=== PATIENT | female | born 1980 | race Caucasian/White ===

== ENCOUNTER 2020-01-14 03:45 | Inpatient (IN) | payer OTHER, SELFPAY ==
[2019-12-16 15:40] VITALS: BMI 35.5
[2020-01-14] VITALS (236 sets, daily range): BP systolic 84–193; BP diastolic 39–162; PULSE 76–275; TEMP 36.6–38.9; O2SAT 94–100; BMI 36.2
--- NOTE | 2020-01-14 04:17 | LDADM ---
This patient, SPOHIA BOO, was admitted to Labor/Delivery/Recovery 106 on 01/14/20 at 03:45. Plans for labor, pain management and were discussed with patient. Patient/family oriented to hospital policies and general routines including ID bracelet, bed and alarms, visiting hours, pain management, procedures, bathroom and other care routines, personal items, smoking policy, room service/diet and guest tray routines, infant security routines, and visiting hours. Patient/Family are encouraged to report perceived risks to care and to ask questions if they do not understand what they are told or what they should do. See OBIX for further documentation.
[2020-01-14 04:27] LABS: Basophils Percent Auto 0.3 % (0.2-1.2); Eosinophils Absolute Auto 0.1 K/mm3 (0-0.3); Eosinophils Percent Auto 0.7 % (0-4.4); Hematocrit 33.1 % (37.0-47.0); Immature Granulocyte Absolute 0.15 K/mm3 (0.00-0.031); Immature Granulocyte Percent A 1.1 % (0-0.5); Lymphocytes Absolute Auto 2.18 K/mm3 (0.9-3.2); Lymphocytes Percent Auto 16.6 % (18.3-44.2); Mean Corpuscular HGB Conc 33.2 g/dl (32-36); Mean Corpuscular Hemoglobin 29.3 pg (26-34); Mean Platelet Volume 9.3 fl (7.4-10.4); Monocytes Absolute Auto 0.9 K/mm3 (0.1-0.6); Monocytes Percent Auto 6.6 % (2.6-8.5); Neutrophils Absolute Auto 9.8 K/mm3 (1.3-6.7); Neutrophils Percent Auto 74.7 % (45.5-73.1); Platelet Count Result 391 k/mm3 (150-375); Red Blood Count 3.76 M/mm3 (4.2-5.4); Red Cell Distribution Width 12.7 % (11.5-14.5); White Blood Count 13.2 K/mm3 (4.5-10.0)
--- NOTE | 2020-01-14 08:30 | WPDOBADMIT ---
Obstetrics - Admit Note Admission Note: record reviewed. Additions to the history and/or subsequent changes in the physical findings follow. 39 y/o G1 at 40 1/7 weeks here with a gush of fluid at 0350. Irregular contractions. GBS neg. AVSS NST reactive TOCO: Contractions irregularly ABD soft, nontender, gravid, vertex EXT nontender Cervix 2-3/50/-2. Gross ROM. Vertex. IUPC placed. A: IUP at term, with SROM.. P: Oxytocin as needed for augmentation. Anticipate .
[2020-01-14] MEDS: LACTATED RINGERS 1,000 ML 125 ML IV CONT ×5 (08:51→21:23)
[2020-01-14] MEDS: OXYTOCIN 30 UNITS/NS 500 ML 30 UNITS/500 ML BAG 6 UNITS IV CONT (08:52)
[2020-01-14 09:03] LABS: Rapid Plasma Reagin Non-Reactive (NonReactive)
--- NOTE | 2020-01-14 13:17 | WPDANESEPP ---
Anes - Eval Pre Procedure Procedure: labor epidural Date/Time: 01/14/20 13:17 Surgeon: chayo Pre Op Diagnosis: Leaking Patient Data Age: 39 Gender: F Height: 1.7 m Weight: 105 kg Last Vital Signs Temp 36.6 C 01/14/20 11:00 Pulse 92 01/14/20 13:16 BP 135/83 01/14/20 13:16 Pulse Ox 100 01/14/20 13:17 Allergies Allergy/AdvReac Type Severity Reaction Status Date / Time No Known Allergies Allergy Verified 01/07/20 14:43 Home Medications Medication Instructions Recorded Confirmed Type Vitamin 3 tab-cap PO DAILY 12/16/19 12/16/19 History Laboratory Tests 01/14/20 01/14/20 01/14/20 04:19 04:19 04:19 WBC 13.2 K/mm3 H K/mm3 (4.5-10.0) RBC 3.76 M/mm3 L M/mm3 (4.2-5.4) Hgb 11.0 g/dL L g/dL (12.0-15.0) Hct 33.1 % L % (37.0-47.0) MCV 88.0 fl fl (80-100) MCH 29.3 pg pg (26-34) MCHC 33.2 g/dl g/dl (32-36) RDW 12.7 % % (11.5-14.5) Plt Count 391 k/mm3 H k/mm3 (150-375) MPV 9.3 fl fl (7.4-10.4) Immature Gran % (Auto) 1.1 % H % (0-0.5) Neut % (Auto) 74.7 % H % (45.5-73.1) Lymph % (Auto) 16.6 % L % (18.3-44.2) [place] % (Auto) 6.6 % % (2.6-8.5) Eos % (Auto) 0.7 % % (0-4.4) Baso % (Auto) 0.3 % % (0.2-1.2) Lymph # (Auto) 2.18 K/mm3 K/mm3 (0.9-3.2) [place] # (Auto) 0.9 K/mm3 H K/mm3 (0.1-0.6) Eos # (Auto) 0.1 K/mm3 K/mm3 (0-0.3) Baso # (Auto) 0.0 K/mm3 K/mm3 (0.0-0.1) Abs Immat Gran (auto) 0.15 K/mm3 H K/mm3 (0.00-0.031) Absolute Neuts (auto) 9.8 K/mm3 H K/mm3 (1.3-6.7) Absolute Nucleated RBC 0.0 K/mm3 K/mm3 (0.0-0.012) Nucleated RBC % 0.0 % % (0.0-0.2) RPR Non-reactive (NonReactive) Blood Type A Positive Antibody Screen Negative Patient hx anesthesia problems: none Family hx anesthesia problems: none [facility] Family History Family History (System 01/07/20 @ 14:43 by Giselle Zamarripa) Grandparent Congestive heart failure Colon cancer Cerebrovascular accident History of blood clots Social History Social History (System 01/07/20 @ 14:43 by Giselle Zamarripa) Smoking status: Former smoker Smoking end date: 01/14/20 Exam Day of Procedure 01/14/20 13:17
--- NOTE | 2020-01-14 18:56 | PM.OBPNLAB ---
Pain Control Date/time seen: 01/14/20 18:56 Comments: Comfortable with epidural. Pelvic Exam Dilation (cm): 7 Effacement (%): 90 station: -1 Assessment and Plan Comments: AVSS NST reactive TOCO: contractions every 2-3 min. A: IUP at term with SROM, slow progress in labor. P: Continue labor augmentation with oxytocin. Watch closely.
[2020-01-14] MEDS: SODIUM CHLORIDE 0.9% IV 300 ML 600 ML I-UTERINE (19:13)
[2020-01-14] MEDS: AMPICILLIN 2 GM/NS 100 ML 2 GM/100 ML BAG IVPB (20:26)
--- NOTE | 2020-01-14 23:45 | P.PNOB_ITS ---
Pain Control Date/time seen: 01/14/20 23:45 Comments: Had temp 101F, treated with Tylenol. Still comfortable with epidural. Meconium-stained fluid now noted. Pelvic Exam Dilation (cm): 9 Effacement (%): 90 station: 0 Assessment and Plan Comments: AVSS (Tc100) NST occasional variable, 180 bpm TOCO: contractions every 3-5 min Cervix 9/90/0. Tried pushing, but cervix not reducible. A: Arrest of dilation in labor, now with maternal fever and meconium-stained fluid. P: Offered primary . Reviewed risks, benefits, alternatives in detail. She understands risks of surgery to include risks of anesthesia, risks of pain, infection, bleeding, blood products, thromboembolic phenomena and damage to adj acent structures such as bowel, bladder, ureters, blood vessels and nerves. She understands all these risks and elects to proceed with surgery.
--- NOTE | 2020-01-14 23:51 | PM.IMHP ---
H&P: HPI History of Present Illness Chief complaint: Leaking Narrative: 39 y/o G1 at 40 1/7 weeks here after a gush of fluid. SROM diagnosed. Have augmented labor with oxytocin. Comfortable with epidural. Over the last 5-6 hours, and with adequate contractions, the cervix has changed from 7 to 9 cm with minimal descent. Now with elevated temp and meconium-stained fluid. Review of Systems Review of Systems: All systems reviewed & are unremarkable except as noted in HPI and below PMFSH Family History Family History Grandparent Congestive heart failure Colon cancer Cerebrovascular accident History of blood clots Social History Social History Smoking status: Former smoker Smoking end date: 01/14/20 Comments Past OB: None Past [employer]: menarche at 14 with monthly menses lasting 4-5 days. No history of STI or abnormal Pap. Meds Home Medications and Allergies Home Medications Medication Instructions Recorded Confirmed Type Vitamin 3 tab-cap PO DAILY 12/16/19 12/16/19 History Allergies Allergy/AdvReac Type Severity Reaction Status Date / Time No Known Allergies Allergy Verified 01/07/20 14:43 Vital Signs Vital Signs - 24 hr 01/14/20 04:46 01/14/20 04:47 01/14/20 04:52 Temperature 36.8 C Pulse Rate 93 96 Blood Pressure 137/96 H 140/93 H Pulse Oximetry 01/14/20 07:00 01/14/20 08:00 01/14/20 08:20 Temperature 36.8 C Pulse Rate 89 105 H Blood Pressure 131/83 133/85 Pulse Oximetry 01/14/20 08:40 01/14/20 09:00 01/14/20 09:20 Temperature Pulse Rate 96 104 H 96 Blood Pressure 134/89 119/80 123/79 Pulse Oximetry 01/14/20 09:40 01/14/20 10:00 01/14/20 10:09 Temperature Pulse Rate 93 101 H Blood Pressure 138/84 148/103 H Pulse Oximetry 99 01/14/20 10:13 01/14/20 10:18 01/14/20 10:20 Temperature Pulse Rate 100 Blood Pressure 134/88 Pulse Oximetry 100 100 01/14/20 10:23 01/14/20 10:28 01/14/20 10:33 Temperature Pulse Rate Blood Pressure Pulse Oximetry 100 100 99 01/14/20 10:38 01/14/20 10:40 01/14/20 10:41 Temperature Pulse Rate 93 Blood Pressure 144/77 H Pulse Oximetry 100 98 01/14/20 10:42 01/14/20 10:47 01/14/20 10:52 Temperature Pulse Rate Blood Pressure Pulse Oximetry 99 100 99 01/14/20 10:57 01/14/20 11:00 01/14/20 11:02 Temperature 36.6 C Pulse Rate 103 H Blood Pressure 145/96 H Pulse Oximetry 99 100 01/14/20 11:07 01/14/20 11:18 01/14/20 11:20 Temperature Pulse Rate 110 H Blood Pressure 134/69 Pulse Oximetry 99 98 01/14/20 11:25 01/14/20 11:30 01/14/20 11:35 Temperature 36.8 C Pulse Rate Blood Pressure Pulse Oximetry 99 99 99 01/14/20 11:40 01/14/20 11:45 01/14/20 11:50 Temperature Pulse Rate 100 Blood Pressure 137/90 Pulse Oximetry 99 100 99 01/14/20 11:55 01/14/20 11:58 01/14/20 12:00 Temperature Pulse Rate 95 Blood Pressure 145/93 H Pulse Oximetry 98 99 01/14/20 12:03 01/14/20 12:14 01/14/20 12:19 Temperature Pulse Rate Blood Pressure Pulse Oximetry 100 99 98 01/14/20 12:20 01/14/20 12:24 01/14/20 12:29 Temperature Pulse Rate 99 Blood Pressure 156/104 H Pulse Oximetry 99 99 01/14/20 12:34 01/14/20 12:39 01/14/20 12:40 Temperature Pulse Rate 102 H Blood Pressure 138/89 Pulse Oximetry 99 99 01/14/20 12:44 01/14/20 12:45 01/14/20 12:46 Temperature Pulse Rate Blood Pressure Pulse Oximetry 100 94 98 01/14/20 12:51 01/14/20 12:57 01/14/20 12:58 Temperature Pulse Rate 104 H Blood Pressure 147/99 H Pulse Oximetry 99 98 01/14/20 13:00 01/14/20 13:02 01/14/20 13:04 Temperature Pulse Rate 99 91 Blood Pressure 144/89 H 135/82 Pulse Oximetry 100 01/14/20 13:06 01/14/20 13:07 01/14/20 13:08 Temperature
[2020-01-15] VITALS (69 sets, daily range): BP systolic 64–112; BP diastolic 37–72; PULSE 92–133; RESP 16–23; TEMP 36.4–38.1; O2SAT 73–100
--- NOTE | 2020-01-15 00:54 | PM.OBPRVD ---
OB - Delivery Note Procedure Delivery date: 01/15/20 Procedure: Procedures Operation Date: 01/14/20 23:30 <No data on this case meets the specified criteria> Operation Date: 01/15/20 23:55 <No data on this case meets the specified criteria> Primary LTCS Delivery augmentation: pitocin Delivery monitor: external FHT, external uterine and internal uterine Route of delivery: (Primary LTCS) Specimen: Yes (Cord blood, placenta) Estimated blood loss (mL): 920 Anesthesia type: Epidural Disposition: PACU Complications: None Narrative: The patient was taken to the operating room where she was prepared and draped in the usual sterile fashion in dorsal supine position with a leftward tilt. She received cefazolin preoperatively. Epidural anesthesia was found to be adequate. A Pfannenstiel skin incision was made and carried through to the underlying layer of the fascia. The fascia was incised in the midline and the incision was extended laterally. The fascia was dissected free of the underlying rectus muscles. The rectus muscles were in the midline. The peritoneum was identified, tented up and entered sharply. The peritoneal incision was extended superiorly and inferiorly with good visualization of the bladder. The bladder blade was placed. The vesicouterine peritoneum was identified, tented up and entered sharply. The incision was extended laterally and the bladder flap was developed. The bladder blade was replaced. The uterus was then incised sharply in a transverse fashion along the lower uterine segment. The incision was extended laterally. The 's head was delivered atraumatically to the sterile field, followed by the body. The nose and mouth were bulb suctioned. The infant was handed off the field. Cord blood was collected. The placenta was removed manually and was passed off the field. The uterus was exteriorized and cleared of all clots and debris. The uterine incision was reapproximated using 0 Monocryl in a running, locked fashion. A second, imbricating layer of the same suture was placed. Excellent hemostasis resulted as did excellent reapproximation of the normal anatomy. The uterus was returned the abdomen. The pelvis was irrigated copiously with warmed normal saline. Rigorous hemostasis was assured. The fascial layer was reapproximated using 0 Vicryl in a running fashion. The skin was closed with a running, subcuticular stitch of 4 0 Vicryl. Dermaflex was applied externally. Sponge, lap, needle and instrument counts were correct. The patient was taken to the recovery room in stable condition. The infant went to the nursery in stable condition. I was present and scrubbed the entire procedure. Baby Date of : 01/15/20 Time of : 00:13 Weeks of gestation at delivery: 40 gender: Male Weight (pounds): 10 Weight (ounces): 6 presentation: vertex Placenta delivery description: Manual Removal and Normal Configuration cord vessel description: 3 Vessels score one minute: 8 score five minutes: 9
--- NOTE | 2020-01-15 00:56 | PM.OBDSVD ---
DS: Diagnosis Admitting Diagnosis Admitting Diagnosis: SROM OB - DS: Summary OB Procedures : None OB Procedures Intrapartum: OB Procedures: : None Peripartum Data Procedures: Procedures Operation Date: 01/14/20 23:30 <No data on this case meets the specified criteria> Operation Date: 01/15/20 23:55 <No data on this case meets the specified criteria> Time Spent with Patient Time attestation: Total time spent providing and/or coordinating discharge services: DS: Data Data Completed and Pending Labs on day of discharge: Labs from last 24 hours 01/14/20 01/14/20 01/14/20 04:19 04:19 04:19 WBC 13.2 H RBC 3.76 L Hgb 11.0 L Hct 33.1 L MCV 88.0 MCH 29.3 MCHC 33.2 RDW 12.7 Plt Count 391 H MPV 9.3 Immature Gran % (Auto) 1.1 H Neut % (Auto) 74.7 H Lymph % (Auto) 16.6 L [place] % (Auto) 6.6 Eos % (Auto) 0.7 Baso % (Auto) 0.3 Lymph # (Auto) 2.18 [place] # (Auto) 0.9 H Eos # (Auto) 0.1 Baso # (Auto) 0.0 Abs Immat Gran (auto) 0.15 H Absolute Neuts (auto) 9.8 H Absolute Nucleated RBC 0.0 Nucleated RBC % 0.0 RPR Non-reactive Blood Type A Positive Antibody Screen Negative Discharge Plan Discharge Attending physician on discharge: Moses Benson Discharging Clinician: Moses Benson Patient Disposition: Home, Self-Care Activity: may shower, may drive after 2 weeks and pelvic rest Diet: regular Wound Care Instructions: incision open to air Discharge Instructions: Call or return if temperature above 100.4? F, increased abdominal pain, increased vaginal bleeding or any new problems. Stand Alone Forms: General Discharge Information Follow-up/Referrals: Moses Benson MD [Primary Care Provider] - (4 weeks) Discharge Medications: New hydrocodone-acetaminophen [[place]] 5-325 mg tablet 1 - 2 tablet PO Q6H PRN (Reason: pain) Qty: 30 RF: 0 ibuprofen 600 mg tablet 600 mg PO Q6H PRN (Reason: cramps) Qty: 30 RF: 0 ferrous sulfate 325 mg (65 mg iron) tablet,delayed release (DR/EC) 325 mg PO DAILY Qty: 30 RF: 0 No Action Vitamin 3 tab-cap PO DAILY RF: 0 Date of admission: 01/14/20 03:45 Primary Care Provider: Moses Benson Admitting Provider: Moses Benson Attending physician on admission: Moses Benson
[2020-01-15] MEDS: OXYTOCIN 30 UNITS/NS 500 ML 30 UNITS/500 ML BAG 125 UNITS IV CONT (00:59)
[2020-01-15] MEDS: LACTATED RINGERS 1,000 ML 125 ML IV CONT (00:59)
[2020-01-15] MEDS: KETOROLAC 30 MG/ML VIAL (*BKC) IV PUSH ×2 (02:15→08:05)
--- NOTE | 2020-01-15 03:23 | OBPPTRN ---
Patient transferred to post room #292 via stretcher. Support person present. Oriented to unit, room, information board, rooming in, admission packet and security measures. Patient verbalizes understanding. Infant in level 2 nursery
[2020-01-15] MEDS: DEXTROSE 5%/0.45% SOD CHL 1,000 ML 125 ML IV CONT (05:05)
--- NOTE | 2020-01-15 07:18 | P.PNOB_ITS ---
OB - PN: Subj Subjective Date/time seen: 01/15/20 07:18 Interval history: Patient doing well this AM. she has note yet ambulated our of bed. She has not yet attempted PO. She reports adequate pain control. Her bleeding is normal and she reports normal lochia. She denies fever, chills, N/V. She has not yet passed flatus. Patient comments: no complaints and pain well controlled; no flatus present OB - PN: Obj Data Labs CBC & Chem 7: 01/14/20 04:19 Labs: Laboratory Results - last 24 hr 01/14/20 04:19 RPR Non-reactive OB - PN A/P Plan day: 1 Plan: routine care Comments: patient doing well this AM will plan to D/C donis once ambulating advance diet as tolerated H/H stable continue routine PP care plan for circumcision tomorrow Time Spent With Patient Time: Total time spent is greater than 50% in coordination of care (as documented) at patient's floor/unit and/or counseling patient: Time with patient: less than 15 minutes Review of Systems Constitutional: Constitutional: Reports no additional constitutional complaint s Cardiovascular: Cardiovascular: Reports no additional cardiovascular complaints Respiratory: Respiratory: Reports no additional respiratory complaints Gastrointestinal: Gastrointestinal: Reports no additional gastrointestinal complaints Genitourinary: Genitourinary: Reports no additional female genitourinary complaints Exam Const: General: comfortable and no acute distress Resp: Effort & Inspection: normal respiratory effort Auscultation: clear to auscultation bilaterally Cardio: Rate: regular rate GI: GI Palp: Yes Soft to palpation and Yes Tenderness to palpation present (GI) (appropriately tender around incision ) Auscultation: normal bowel sounds Other: fundus firm and below umbilicus Incision C/D/I Urinary Catheter: Urinary Catheter: urine clear Psych: Appearance: grossly normal Mental Status: mental status grossly normal Affect: normal affect
[2020-01-15] MEDS: DOCUSATE SODIUM 100 MG CAPSULE PO ×2 (08:05→16:48)
--- NOTE | 2020-01-15 10:15 | PC.NURSE ---
Infant to floor for first feeding from Level II. Reviewed infant feeding cues, frequencies, duration of feedings, feeding elimination flow sheet, and signs of adequate intake. Demonstrated stimulation techniques to wake infant for feeding. Assisted with infant to breast. Assisted with pillow support due to C/S. Reviewed positioning/alignment in football, holding breast in C hold and guided asymmetrical latch on. Discussed rational for each. Infant was able to latch correctly. Infant nursed eagerly, with steady draws and frequent swallowing noted. Reviewed signs of a correct latch, effective nursing and suck swallow ratio. Infant was able to maintain latch without discomfort to mother. Nipple care reviewed. Instructed mother to call out for RN assistance if she is unable to latch infant for feeding or she has discomfort with nursing. Instructed feeding should be initiated three hours from start of last feeding or if feeding cues are noted before. Mother voiced understanding of information shared.
[2020-01-15] MEDS: ONDANSETRON INJ 4 MG/2 ML VIAL IV PUSH (11:52)
--- NOTE | 2020-01-15 14:00 | PC.NURSE ---
RN called for assisting with to breast. Reviewed stimulation techniques to wake for feeding. Assisted with to breast. Reviewed positioning/alignment in cross cradle, holding breast in U hold and guided asymmetrical latch on. Discussed rational for each. Within a few attempts,infant was able to latch correctly. nursed eagerly, with steady draws and frequent swallowing noted. Reviewed signs of a correct latch, effective nursing and suck swallow ratio. Infant was able to maintain latch without discomfort to mother. Nipple care reviewed. Suggested mother stimulate to keep infant nursing effectively to assist with maintaining deep latch and increased intake. Instructed mother to call out for RN assistance if she is unable to latch for feeding or she has discomfort with nursing. Instructed feeding should be initiated three hours from start of last feeding or if feeding cues are noted before. Mother voiced understanding of information shared.
[2020-01-15] MEDS: IBUPROFEN 600 MG TABLET PO ×2 (14:26→20:45)
[2020-01-15] MEDS: ACETAMINOPHEN 325 MG TABLET 650 MG PO ×2 (14:26→20:45)
[2020-01-16] MEDS: IBUPROFEN 600 MG TABLET PO ×3 (02:36→18:39)
[2020-01-16] MEDS: ACETAMINOPHEN 325 MG TABLET 650 MG PO ×4 (02:36→21:00)
[2020-01-16 05:47] LABS: Hematocrit 24.1 % (37.0-47.0); Hemoglobin 8.1 g/dL (12.0-15.0); Mean Corpuscular HGB Conc 33.6 g/dl (32-36); Mean Corpuscular Hemoglobin 29.9 pg (26-34); Mean Corpuscular Volume 88.9 fl (80-100); Mean Platelet Volume 10.1 fl (7.4-10.4); Platelet Count Result 234 k/mm3 (150-375); Red Blood Count 2.71 M/mm3 (4.2-5.4); Red Cell Distribution Width 13.3 % (11.5-14.5); White Blood Count 48.8 K/mm3 (4.5-10.0)
[2020-01-16 06:43] LABS: Band Neutrophils Percent 10 % (0-6); Lymphocytes Absolute Manual 0.48 K/mm3 (1.1-4.5); Monocytes Absolute Manual 0.48 K/mm3 (0.1-0.90); Monocytes Percent Manual 1 % (3-9); Neutrophils Absolute Manual 47.82 K/mm3 (1.7-7.2); Neutrophils Percent Manual 88 % (46-73); Platelet Estimate Adequate (Adequate); Total Cells Counted 100
[2020-01-16 08:00] VITALS: BP 95/59; PULSE 86; RESP 18; TEMP 36.6
[2020-01-16] MEDS: POLYSACCHARIDE IRON COMPLEX 150 MG CAPSULE PO ×2 (08:49→16:10)
[2020-01-16] MEDS: MULTIVIT/MIN/PREN/FOL AC/IRON TABLET 1 TAB PO (08:49)
[2020-01-16] MEDS: SIMETHICONE 80 MG TAB.CHEW PO ×2 (08:49→16:11)
[2020-01-16] MEDS: DOCUSATE SODIUM 100 MG CAPSULE PO ×2 (08:49→16:10)
--- NOTE | 2020-01-16 12:42 | PM.OBPNVD ---
OB - PN: Subj Subjective Date/time seen: 01/16/20 12:42 Narrative: Pain OK. Tolerating diet. Voiding. Wants circumcision for son. OB - PN: Obj Data Labs CBC & Chem 7: 01/16/20 04:24 Labs: Laboratory Results - last 24 hr 01/16/20 04:24 WBC 48.8 H RBC 2.71 L Hgb 8.1 L Hct 24.1 L MCV 88.9 MCH 29.9 MCHC 33.6 RDW 13.3 Plt Count 234 MPV 10.1 Immature Gran % (Auto) Not Reportable Neut % (Auto) Not Reportable Lymph % (Auto) Not Reportable [place] % (Auto) Not Reportable Eos % (Auto) Not Reportable Baso % (Auto) Not Reportable Lymph # (Auto) Not Reportable [place] # (Auto) Not Reportable Eos # (Auto) Not Reportable Baso # (Auto) Not Reportable Abs Immat Gran (auto) Not Reportable Absolute Neuts (auto) Not Reportable Absolute Nucleated RBC Not Reportable Total Counted 100 Neutrophils % (Manual) 88 H Band Neutrophils % 10 H Lymphocytes % (Manual) 1.0 L Monocytes % (Manual) 1 L Nucleated RBC % Not Reportable Abs Neuts (Manual) 47.82 H Abs Lymphs (Manual) 0.48 L Abs Monocytes (Manual) 0.48 Platelet Estimate Adequate OB - PN A/P Plan Comments: A: POD#1, doing well. P: Routine care. Reviewed circ. Exam Psych: Other: AVSS I/O OK ABD soft, nontender, fundus firm. Incision c/d/i. EXT nontender
--- NOTE | 2020-01-16 13:20 | PC.NURSE ---
Consulted with patient, mother reports infant has been eagerly feeding. Reviewed feeding cues, frequencies, duration of feedings, feeding elimination flow sheet, and signs of adequate intake. Demonstrated stimulation techniques to wake for feeding. Assisted with to breast. Reviewed positioning/alignment in cross cradle, holding breast in U hold and guided asymmetrical latch on. Discussed rational for each. Infant was able to latch correctly. Mother quickly reports she can feel infant is latched more deeply than previous feedings. Infant nursed eagerly, with steady draws and frequent swallowing noted. Reviewed signs of a correct latch, effective nursing and suck swallow ratio. Infant was able to maintain latch without discomfort to mother. Suggested mother stimulate to keep awake and nursing effectively for increased intake and assist with maintaining deep latch. Demonstrated how to adjust latch more deeply while feeding. Instructed mother to call out for RN assistance if she is unable to latch infant for feeding or she has discomfort with nursing. Instructed feeding should be initiated three hours from start of last feeding or if feeding cues are noted before. Mother voiced understanding of information shared.
--- NOTE | 2020-01-16 17:01 | WPDANLDNPN2 ---
Anes-Prog Note L&D-Neuraxial Date/Time: 01/16/20 17:01 Neuraxial medications: epidural PF morphine Opiod-related complaints: none Patient feedback: Patient satisfied with post-operative pain management.
[2020-01-16 18:47] VITALS: BP 122/85; PULSE 89; RESP 16; TEMP 36.7
[2020-01-17] MEDS: IBUPROFEN 600 MG TABLET PO ×3 (00:01→12:17)
[2020-01-17] MEDS: ACETAMINOPHEN 325 MG TABLET 650 MG PO (03:00)
[2020-01-17] MEDS: MULTIVIT/MIN/PREN/FOL AC/IRON TABLET 1 TAB PO (07:33)
[2020-01-17] MEDS: POLYSACCHARIDE IRON COMPLEX 150 MG CAPSULE PO (07:33)
[2020-01-17] MEDS: DOCUSATE SODIUM 100 MG CAPSULE PO (07:34)
[2020-01-17 09:10] VITALS: BP 131/81; PULSE 80; RESP 18; TEMP 36.4; O2SAT 98
--- NOTE | 2020-01-17 11:24 | PM.OBPNVD ---
OB - PN: Subj Subjective Date/time seen: 01/17/20 11:24 Narrative: Pain OK. Tolerating diet. Would like to go home. OB - PN: Obj Data Labs CBC & Chem 7: 01/16/20 04:24 OB - PN A/P Plan Comments: A: POD#2, doing well. P: Home to f/u 4 weeks. Exam Psych: Other: AVSS ABD soft, nontender, fundus firm. Incision c/d/i. EXT nontender
[2020-01-17] MEDS: SIMETHICONE 80 MG TAB.CHEW PO (12:17)
--- NOTE | 2020-01-17 15:10 | PC.NURSE ---
Patient viewed the discharge video Mother & Baby Care, The First Two Weeks . Patient was given the opportunity and encouraged to ask questions. Patient verbalized understanding of information shared and has been given the mother/baby guide for home reference.
--- NOTE | 2020-01-17 15:15 | PC.NURSE ---
Mother is able to independently latch with appropriate positioning/alignment. She denies any nipple discomfort, is feeding as required and waking infant to feed if needed. Infant has had 8 effective feedings in the past 24 hours, and is currently meeting outcomes for weight, output, jaundice and feeding frequencies. Mother had many questions on process if infant is not feeding as required, having required output or not satisfied after feedings. Suggested mother offer small amounts of EBM/formula after and notify ICP of infant status. Suggested if she supplements mother initiate pumping after breastfeedings to assist with stimulation of milk supply and offer EBM as part of supplement. Mother states she feels confident to continue effective at home. Reviewed transition to breast milk, signs of adequate intake, and engorgement/relief. Instructed to call ICP if intake/output less than required. Reviewed regular medications mother is taking. Information provided per Mattie. Reviewed community resources on the [facility] website and in the Mom/Baby guide. Information on outpatient services provided. Mother has no further questions at this time.
[2020-01-20 11:40] VITALS: BP 145/94; PULSE 85; RESP 18; TEMP 37.1
== END 2020-01-17 16:41 | disposition home or self-care (01) | DRG 786 ==
LOC: ANHLDR 04:19 → ANHOB2 01-15 04:10
PROVIDERS: Admitting Provider Student in an Organized Health Care Education/Training Program; PCP Obstetrics & Gynecology; Visit Provider Obstetrics & Gynecology
PROC: (CPT 59514; principal; 2020-01-14 23:30)
PROC: 10D00Z1 Extraction of Products of Conception, Low, Open Approach (ICD-10-PCS; CPT 59514; principal; 2020-01-15 23:55)
DX: O36.8330 Maternal care for abnormalities of the fetal heart rate or rhythm, third trimester, not applicable or unspecified (principal); O41.1230 Chorioamnionitis, third trimester, not applicable or unspecified; Z37.0 Single live birth; Z3A.40 40 weeks gestation of pregnancy; O77.0 Labor and delivery complicated by meconium in amniotic fluid; O62.1 Secondary uterine inertia
CPT/HCPCS: 36415; 85025; 86592; 86850; 86900; 86901; 88307; A9270; J0131; J0290; J1885; J2274; J2405; J2590; J2795; J3010; J7030; J7120

== ENCOUNTER 2023-03-01 16:02 | Outpatient (CLI) | payer OTHER, SELFPAY ==
--- NOTE | ~2023-03-01 | US_ITS ---
EXAMINATION: US pelvic complete w TV DATE: 03/01/2023 17:11 INDICATION: Pelvic pain Comparison:No prior studies for comparison. TECHNIQUE: Multiple transabdominal and endovaginal sonographic images of the pelvis performed. FINDINGS: The uterus measures 9.1 x 4.6 x 6.6 cm. The endometrial complex measures 1.4 cm. The right ovary measures 4.2 x 2.8 x 2.4 cm and the left ovary measures 3.7 x 3.2 x 3.1 cm. There ar e small follicles in each ovary. Normal doppler signal in both ovaries. There is no free fluid in the pelvis. There are no abnormal masses seen on either side. IMPRESSION: 1. Endometrial thickening measuring 1.4 cm. Reviewed, dictated and finalized at location D.
== END 2023-03-01 16:03 | disposition home or self-care (01) ==
PROVIDERS: Visit Provider Obstetrics & Gynecology
DX: R10.2 Pelvic and perineal pain (principal); R93.89 Abnormal findings on diagnostic imaging of other specified body structures
CPT/HCPCS: 76830; 76856